=== PATIENT | male | born 1980 | race African-American/Black ===

== ENCOUNTER 2017-10-01 01:23 | Emergency (ER) | payer OTHER ==
[2017-10-01] MEDS ORDERED: KETOROLAC TROMETHAMINE 30 MG/1ML VIAL IM ONE (01:45)
[2017-10-01] MEDS ORDERED: GUAIFENESIN 100 MG/5 ML PO ONE (01:45)
[2017-10-01] MEDS ORDERED: LORATADINE 10 MG TABLET PO ONE (01:49)
--- NOTE | 2017-10-01 01:52 | ED Physician Documentation ---
Upper Respiratory Symptoms - HISTORIAN Historian: patient - HPI Stated Complaint: cough, chest pain with cough or inspiration Chief Complaint: Cough/ Upper Respiratory Additional Information: started coughing when he got up to work. Cough so much he started to have pain with coughing and deep inspiration. non-productive. scratchy cough Onset: minutes Context: denies: recent foreign travel, insect bite(s), tick(s), recent chemotherapy Severity: mild Associated Symptoms: hurts to breathe. denies: fever, chills, sweating, runny nose, sore throat, productive cough, shortness of breath, headache Worsened by Deep Breath: Yes Further Comments: no - ROS CONST/EYES: denies: weakness CVS/RESP: none LYMPH: denies: leg swelling GI/: none NEURO/PSYCH: denies: fainting, dizziness MS/SKIN: denies: joint pain, muscle aches - PAST HX Lung Disease: none PE Risk Factors: none Other History: denies: cardiac disease Surgeries/Procedures: none Immunizations: UTD Allergies/Adverse Reactions: Allergies Allergy/AdvReac Type Severity Reaction Status Date / Time No Known Allergies Allergy Verified 10/01/17 01:33 Home Medications: Ambulatory Orders Medication Instructions Recorded NK [NK] 10/01/17 - SOCIAL HX Smoking History: non-smoker Alcohol Use: none Drug Use: none - FAMILY HX Family History: none - VITAL SIGNS Vital Signs: Vital Signs Temp Pulse Resp BP Pulse Ox 98.3 F 85 22 137/89 99 10/01/17 01:23 10/01/17 01:23 10/01/17 01:23 10/01/17 01:23 10/01/17 01:23 - REVIEWED ASSESSMENTS Nursing Assessment Reviewed: Yes Vitals Reviewed: Yes ED Results Lab/Radiology - Orders Orders: ED Orders Category Date Time Status Ketorolac Tromethamine [Toradol] Med 10/01/17 01:45 Once 30 mg IM NOW ONE Loratadine [Claritin] Med 10/01/17 01:49 Once 10 mg PO NOW ONE guaiFENesin [Robitussin] Med 10/01/17 01:45 Once 5 mg PO NOW ONE Upper Respiratory Symptoms - EXAM General Appearance: mild distress, anxious, hyperventilating EENT: eyes nml inspection, nml ENT inspection, lids & conjunct. nml, pharynx nml Neck: normal inspection, supple. No: lymphadenopathy Respiratory: no resp. distress, breath sounds nml, speaks full sentences Abdomen: non-tender CVS: reg rate & rhythm Skin: color nml, no rash Extremities: non-tender Neuro/Psych: oriented x3 Discharge Clincal Impression: Costochondritis, acute, Cough in adult URI (upper respiratory infection) Qualifiers: URI type: unspecified viral URI Qualified Code(s): J06.9 - Acute upper respiratory infection, unspecified; B97.89 - Other viral agents as the cause of diseases classified elsewhere; B97.89 - Other viral agents as the cause of diseases classified elsewhere Referrals: Roshan Saleh MD [Primary Care Provider] - 2 Days Condition: Stable Disposition: 01 HOME, SELF-CARE Decision to Admit: NO Date of Decison to Admit: 10/01/17 Decision Time: 01:54
[2017-10-01] MEDS ORDERED: GUAIFENESIN 200 MG/10 ML PO ONE (01:55)
[2017-10-01 02:32] VITALS: BP 140/84
== END 2017-10-01 02:06 | disposition home or self-care (01) ==
LOC: ED 01:23
DX: M94.0 Chondrocostal junction syndrome [Tietze] (principal); J06.9 Acute upper respiratory infection, unspecified; B97.89 Other viral agents as the cause of diseases classified elsewhere
CPT/HCPCS: 96372; 99283; J1885

== ENCOUNTER 2018-06-11 15:29 | Emergency (ER) | payer OTHER ==
--- NOTE | 2018-06-11 15:40 | ED Physician Documentation ---
Chest Pain - HISTORIAN Historian: patient - HPI Chief Complaint: Chest Pain Additional Information: 38 yo male with 2 week history of dizziness. No precipitating factor noted. No modifying factors noted. Last for minutes to hours. Feels off balance some. No nausea noted. Mild vertigo symptoms. Over the last week has been having some intermittant chest pain. Feels that it maight be related to indigestion. Not related to dizziness. Today had another spell today while standing doing dishes. Timing: gradual onset, gone now Last known Well Date: 06/25/18 Last Known Well Time: 14:40 Last known Well Code/Unknown Code: Unknown Context: rest Severity: moderate Quality: aching Chest Pain Radiation: no radiation Chest Pain Signs/Symptoms: denies: nausea, vomiting, diaphoresis Worsened By: nothing Relieved By: nothing - ROS CONST: none NEURO/PSYCH: none. denies: headache, fainting - PAST HX GA risk factors: no pertinent history GI disease: none Surgeries/Procedures: none Immunizations: referred to PCP Allergies/Adverse Reactions: Allergies Allergy/AdvReac Type Severity Reaction Status Date / Time No Known Allergies Allergy Verified 10/01/17 01:33 Home Medications: Ambulatory Orders Medication Instructions Recorded NK 10/01/17 - SOCIAL HX Smoking History: non-smoker Alcohol Use: none Drug Use: none - FAMILY HX Family HX: none - VITAL SIGNS Vital Signs: Vital Signs Temp Pulse Resp BP Pulse Ox 140/84 10/01/17 02:29 - REVIEWED ASSESSMENTS Nursing Assessment Reviewed: Yes Vitals Reviewed: Yes Progress - EKG/XRAY/CT EKG: NSR (bradycardia), nonspecific ST T wave chg Comments: poor r wave progression, ED Results Lab/Radiology - Orders Orders: ED Orders Category Date Time Status Continuous EKG monitoring Q30M Care 06/11/18 15:37 Ordered Continuous Pulse Oximetry Q30M Care 06/11/18 15:[address] IV Lock 1T Care 06/11/18 15:37 Ordered CHEST 2VIEW [RAD] Stat Exams 06/11/18 Ordered CBC/PLATELET/DIFF Routine Lab 06/11/18 15:37 Ordered CMP Routine Lab 06/11/18 15:37 Ordered CREATINE KINASE Routine Lab 06/11/18 15:37 Ordered TROPONIN I (cTnI) Stat Lab 06/11/18 15:37 Ordered Aspirin Med 06/11/18 15:37 Once 324 mg PO NOW ONE EKG WITH COMPARISON Stat Ther 06/11/18 15:37 Ordered Chest Pain Physical Exam - EXAM General Appearance: no acute distress, alert EENT: ENT inspection normal, pharynx normal, TM's nml. No: anisocoria, hearing deficit, oral lesions, TM erythema Neck: nml inspection Respiratory: no resp. distress, chest non-tender, nml breath sounds, resp.distress. No: manifests distinct pain on movement, wheezes, rales, rhonchi Abdomen: soft, no organomegaly, normal bowel sounds, no abdominal bruit Skin: warm/dry, normal color Extremities: non-tender Neuro: oriented X3, CN's nml as tested, mood/affect nml, cognition normal Discharge Clincal Impression: Dizziness, Bradycardia Referrals: Primary Doctor,No [Primary Care Provider] - 2 Days Additional Instructions: Make sure you stay well hydrated. I will set up holter monitor for you. See if there is any precipitating or modifying factors for your symptoms. Condition: Stable Disposition: 01 HOME, SELF-CARE Decision to Admit: NO Date of Decison to Admit: 06/11/18 Decision Time: 17:44
[2018-06-11] MEDS: ASPIRIN 81 MG CHEW TAB PO ONE (15:45)
[2018-06-11 16:16] LABS: eGFR (Non-African) > 60
[2018-06-11 17:31] LABS: EOS % 1.2 % (0.0-6.8); LYMPH ABS # 1.61 thou/uL (0.60-4.00); MCV 86.4 fL (80.0-100.0); MONOCYTE % 6.6 % (0.0-11.0); MONOCYTE ABS # 0.22 thou/uL (0.00-0.90); PLATELET COUNT 341 thou/uL (130-400)
[2018-06-11] MEDS: ACETAMINOPHEN 325 MG TABLET PO ONE (17:35)
[2018-06-11 18:18] VITALS: BP 132/74
--- NOTE | 2018-06-11 19:09 | Diagnostic Imaging Report ---
UDAY RESENDEZ [facility] [address] [facility].[address] [address] Report Submission Date: Jun 11, 2018 4:24:49 PM CDT Patient Study Name: RAFFI SARKAR Date: Jun 11, 2018 3:58:20 PM CDT Modality Type: DX Gender: M Description: CHEST : 76 Institution: [facility] Physician: UDAY RESENDEZ Pa and lateral chest Clinical history :short of breath Technique pa and lateral upright Findings: The lung deal are clear. I see no hilar or mediastinal mass. There is elevation of right hemidiaphragm. There is no pleural effusion or lesion of the bony thorax. Impression: No acute pulmonary disease Elevated right hemidiaphragm Electronically signed on Jun 11, 2018 4:24:49 PM CDT by: Raffi GOODMAN
== END 2018-06-11 18:12 | disposition home or self-care (01) ==
LOC: ED 15:29
DX: R42 Dizziness and giddiness (principal); R00.1 Bradycardia, unspecified
CPT/HCPCS: 71046; 80053; 82550; 84484; 85025; 99284; S1016

== ENCOUNTER 2018-06-12 11:58 | Outpatient (CLI) | payer OTHER ==
[2018-06-11 18:18] VITALS: BP 132/74
== END 2018-06-12 12:05 ==
LOC: RT 11:58
PROVIDERS: ATTEND Family Medicine
DX: R07.9 Chest pain, unspecified (principal); R42 Dizziness and giddiness; R00.1 Bradycardia, unspecified
CPT/HCPCS: 93225

== ENCOUNTER 2018-12-20 21:57 | Emergency (ER) | payer OTHER ==
--- NOTE | 2018-12-20 22:15 | ED Physician Documentation ---
Nausea/Vomiting/Diarrhea - HISTORIAN Historian: patient - HPI Stated Complaint: nausea/vomiting/diarrhea Chief Complaint: Nausea,Vomiting,Diarrhea Additional Information: Patient presents a 2 hour history of nausea/vomiting/diarrhea. Patient reports some flushing and chills earlier today. He denies abdominal pain currently, however, does experience some cramping abdominal pain with vomiting and diarrhea but it resolves after the act. He denies fever. Onset: hours (2) Duration: waxing, waning, sudden-onset Timing: sudden onset Context: denies: out of country travel Severity: mild - Associated Symptoms Vomiting: bilious Diarrhea: watery Abdominal Pain: cramping - ROS CONST: none CVS/RESP: denies: chest pain, shortness of breath GI/: denies: bloody stools EYES/ENT: none MS/SKIN/LYMPH: denies: ankle swelling NEURO/PSYCH: denies: headache - PAST HX Past History: none Surgeries/Procedures: none Allergies/Adverse Reactions: Allergies Allergy/AdvReac Type Severity Reaction Status Date / Time No Known Allergies Allergy Verified 12/20/18 22:28 Home Medications: Ambulatory Orders Medication Instructions Recorded Ondansetron HCl Rapdis [Zofran Odt] 4 mg PO Q8 PRN #30 tab 12/20/18 - SOCIAL HX Smoking History: non-smoker Alcohol Use: none Drug Use: none - FAMILY HX Family History: none - VITAL SIGNS Vital Signs: Vital Signs Temp Pulse Resp BP Pulse Ox 97.2 F L 88 20 138/87 98 12/20/18 23:35 12/20/18 23:35 12/20/18 23:35 12/20/18 23:35 12/20/18 23:35 - REVIEWED ASSESSMENTS Nursing Assessment Reviewed: Yes Vitals Reviewed: Yes ED Results Lab/Radiology - Lab Results Lab Results: Lab Results 12/20/18 12/20/18 22:15 22:15 WBC 7.10 K/ul K/ul (4.00-12.00) RBC 5.29 M/ul H M/ul (3.90-5.20) Hgb 14.8 g/dL g/dL (12.0-18.0) Hct 45.4 % % (37.0-53.0) MCV 86.0 fl fl (80.0-100.0) MCH 27.9 pg L pg (28.0-34.0) MCHC 32.6 g/dL g/dL (30.0-36.0) RDW 14.3 % % (11.3-14.3) Plt Count 293 K/mm3 K/mm3 (130-400) Neut % (Auto) 82.5 % H % (39.0-79.0) Lymph % (Auto) 11.4 % L % (16.0-50.0) Ogle % (Auto) 4.2 % % (0.0-11.0) Eos % (Auto) 1.3 % % (0.0-6.8) Baso % (Auto) 0.6 (0.0-1.5) Neut # (Auto) 5.9 # k/uL # k/uL (1.4-7.7) Lymph # (Auto) 0.8 # k/uL # k/uL (0.6-4.0) Ogle # (Auto) 0.3 # k/uL # k/uL (0.0-0.9) Eos # (Auto) 0.1 # k/uL # k/uL (0.0-0.6) Baso # (Auto) 0.0 # k/uL # k/uL (0.0-0.5) Sodium 140 mmol/L mmol/L (136-145) Potassium 4.2 mmol/L mmol/L (3.5-5.1) Chloride 105 mmol/L mmol/L (98-107) Carbon Dioxide 27 mmol/L mmol/L (22-30) BUN 16 mg/dL mg/dL (9-20) Creatinine 1.11 mg/dL mg/dL (0.66-1.25) Estimated Creat Clear 141 Est GFR ( Amer) > 60 (60 - ) Est GFR (Non-Af Amer) > 60 (60 - ) Glucose 149 mg/dL H mg/dL (74-106) Calcium 9.0 mg/dL mg/dL (8.4-10.2) Total Bilirubin 0.6 mg/dL mg/dL (0.2-1.3) AST 42 U/L U/L (15-46) ALT 37 U/L U/L (13-69) Alkaline Phosphatase 84 U/L U/L (38-126) Total Protein 7.8 g/dL g/dL (6.3-8.2) Albumin 4.1 g/dL g/dL (3.5-5.0) - Orders Orders: ED Orders Category Date Time Status Place IV Lock 1T Care 12/20/18 22:02 Active CBC/PLATELET/DIFF Routine Lab 12/20/18 22:15 Completed CMP Routine Lab 12/20/18 22:15 Completed 0.9 % Sodium Chloride [Normal Saline] 1,000 ml Med 12/20/18 22:02 Discontinued IV Q1H Ondansetron HCl/Pf [Zofran] Med 12/20/18 22:02 Discontinued 4 mg IVP NOW ONE Nausea Physical Exam - EXAM General Appearance: no acute distress, alert EENT: STANLEY Neck: supple Respiratory: no resp distress, breath sounds normal CVS: reg rate & rhythm, heart sounds normal Abdomen: non-tender. No: tenderness Back: non-tender. No: vertebral point-tendernes Skin: warm/dry, normal color Extremities: non-tender, no edema Neuro/Psych: oriented X3, motor nml, mood/affect nml Discharge Clincal Impression: Gastroenteritis Prescriptions: Ondansetron HCl Rapdis [Zofran Odt] 4 mg PO Q8 PRN #30 tab PRN Reason: nausea/vomiting Referrals: Francis Horvath MD [Primary Care Provider] - 2 Days Additional Instructions: 1. Tylenol and/or Ibuprofen as needed for pain/fever 2. Zofran every 8 hours as needed for nausea 3. Drink plenty of fluids to maintain proper hydration 4. Take Imodium as needed for diarrhea 5. Follow up with PCP within 1 week 6. Return to ED for new or worsening symptoms. Condition: Stable Decision to Admit: NO Date of Decison to Admit: 12/20/18 Decision Time: 22:21
[2018-12-20] MEDS: ONDANSETRON HCL/PF 4 MG/ 2ML VIAL IVP ONE (22:30)
[2018-12-20] MEDS: 0.9 % SODIUM CHLORIDE 1,000 ML IV ONE (22:30)
[2018-12-20 22:35] LABS: MEAN CORPUSCULAR HEMOGLOBIN 27.9 pg (28.0-34.0)
[2018-12-20 22:36] LABS: BASOPHILS % 0.6 (0.0-1.5); EOSINOPHILS % 1.3 % (0.0-6.8); MONOCYTES % 4.2 % (0.0-11.0); NEUTROPHILS # 5.9 # k/uL (1.4-7.7)
[2018-12-20 23:03] LABS: eGFR (Non-African) > 60
[2018-12-21 01:23] VITALS: BP 138/87
== END 2018-12-20 23:35 ==
LOC: ED 21:57
DX: K52.9 Noninfective gastroenteritis and colitis, unspecified (principal)
CPT/HCPCS: 36415; 80053; 85025; 96374; 99283; 99284; J2405; J7030; S1016